=== PATIENT | male | born 1990 | race American Indian/Alaskan Native ===

== ENCOUNTER 2021-06-13 18:28 | Emergency (ER) | payer OTHER ==
[2021-06-13] MEDS ORDERED: HYDROmorphone 1 MG/ML Syringe IM ONE (20:25)
--- NOTE | 2021-06-13 20:31 | EDM.PDOC ---
ED HPI GENERAL MEDICAL PROBLEM - General Chief Complaint: Upper Extremity Injury/Pain Stated Complaint: WRIST INJURY Time Seen by Provider: 06/13/21 19:25 Source of Information: Reports: Patient, RN Notes Reviewed History Limitations: Reports: No Limitations - History of Present Illness INITIAL COMMENTS - FREE TEXT/NARRATIVE: Patient is a 11-year-old male presenting to the emergency department with complaints of pain to his left wrist. He was at a wrestling match in [place] and he tripped over a mat, causing the injury. Denies any previous injuries to this wrist. He has no numbness or tingling distal to the injury. Left Wrist Pain Score (Numeric/FACES): 2 - Related Data Allergies Allergy/AdvReac Type Severity Reaction Status Date / Time No Known Allergies Allergy Verified 06/13/21 21:16 Past Medical History - Past Health History Medical/Surgical History: Denies Medical/Surgical History Social & Family History - Tobacco Use Tobacco Use Status *Q: Current Every Day Tobacco User Years of Tobacco use: 12 Packs/Tins Daily: 0.5 - Caffeine Use Caffeine Use: Reports: Coffee, Energy Drinks, Soda - Recreational Drug Use Recreational Drug Use: Yes Recreational Drug Type: Reports: Marijuana/Hashish Review of Systems - Review of Systems Review Of Systems: Comprehensive ROS is negative, except as noted in HPI. ED EXAM, GENERAL - Physical Exam Exam: See Below Exam Limited By: No Limitations General Appearance: Alert, WD/WN, No Apparent Distress Respiratory/Chest: No Respiratory Distress, Lungs Clear, Normal Breath Sounds, No Accessory Muscle Use, Chest Non-Tender Cardiovascular: Normal Peripheral Pulses, Regular Rate, Rhythm, No Edema, No Gallop, No JVD, No Murmur, No Rub Extremities: Other (Mild swelling and obvious deformity to left wrist. CMS intact distal to injury.) Neurological: Alert, Oriented, Normal Cognition, Normal Gait, No Motor/Sensory Deficits Psychiatric: Normal Affect, Normal Mood Skin Exam: Warm, Dry, Intact, Normal Color, No Rash Course - Vital Signs Last Recorded V/S: Last Vital Signs Temp 97.6 F 06/13/21 18:59 Pulse 64 06/13/21 18:59 Resp 18 06/13/21 18:59 BP 138/88 06/13/21 18:59 Pulse Ox 100 06/13/21 18:59 - Orders/Labs/Meds Meds: Medications Discontinued Medications Generic Name Dose Route Start Last Admin Trade Name Venessa PRN Reason Stop Dose Admin Hydromorphone HCl 1 mg 06/13/21 20:25 06/13/21 20:34 Hydromorphone 1 Mg/Ml Syringe IM 06/13/21 20:26 1 mg ONETIME ONE Administration - Re-Assessments/Exams Free Text/Narrative Re-Assessment/Exam: X-ray of the left wrist shows comminuted fracture of the distal radius as well as the ulnar styloid fracture. Spoke with Dr. Palacios, orthopedist on-call at [facility] in [place]. Unfortunately he does not have access to the images to determine if this requires reduction. He recommend that we splint in place. If there is more than 10 to 15 degrees of angulation, he may check in at [facility] in [place] tomorrow morning between 9 and 10 AM n.p.o. to have it surgically repaired. If it is less than 10 to 15 degrees, he recommends that he follow-up in the clinic on Tuesday. I have ordered Dilaudid 1 mg IM to be given. We will plan to splint. X-ray will be sent to radiology to have the measure the degrees of angulation. 06/14/21 22:20 Volar splint was applied to the left upper extremity extending from the hand to just above the elbow. Patient was provided with sling. He tolerated procedure well. CMS intact after application of splint. See procedure notes. Radiologist commented on moderate angulation, but did not specify the degree of angulation. X-rays were reviewed by Dr. Kayli MD. He estimated it was 20 to 30 degrees of angulation. Patient will present to [facility] in [place] tomorrow morning for surgical repair with Dr. Palacios. Adivsed n.p.o. after midnight. Discharge instructions as documented. Departure - Departure Time of Disposition: 21:12 Disposition: Home, Self-Care 01 Condition: Good Clinical Impression: Closed fracture distal radius and ulna Qualifiers: Encounter type: initial encounter Laterality: left Qualified Code(s): S52.502A - Unspecified fracture of the lower end of left radius, initial encounter for closed fracture - Discharge Information *PRESCRIPTION DRUG MONITORING PROGRAM REVIEWED*: No *COPY OF PRESCRIPTION DRUG MONITORING REPORT IN PATIENT JAY: No Instructions: Wrist Fracture Treated With Immobilization, [id number] Referrals: Newton Palacios MD [Ordering Only Provider] - Forms: ED Department Discharge Additional Instructions: Wear sling at all times when up and moving. Ice and elevate the wrist at rest. Use Tylenol or ibuprofen as needed for discomfort. Check in at [facility] at 9 AM tomorrow morning for surgery. No food or drink after midnight.
--- NOTE | 2021-06-14 08:25 | CR ---
Left wrist: 3 views of the left wrist were obtained. Comparison: No prior left wrist study is available. Fracture is identified within the distal left radius which is mildly comminuted. There is extension into the articular margin. Posterior impaction is seen with posterior tilt of the distal radial articular margin. Minimal fracture is seen within the ulnar styloid process. No additional bony abnormality is seen. Diffuse soft tissue swelling is identified. Impression: 1. Distal left radial fracture with articular extension and posterior impaction. 2. Minimal ulnar styloid avulsion fracture with soft tissue swelling. Diagnostic code #3 I agree with preliminary report from [facility], finalized on 06/13/21, 9:57 PM [employer], code 1
== END 2021-06-13 21:22 | disposition home or self-care (01) ==
LOC: JD.ED 18:28
DX: S52.502A Unspecified fracture of the lower end of left radius, initial encounter for closed fracture (principal); S52.612A Displaced fracture of left ulna styloid process, initial encounter for closed fracture; Z72.0 Tobacco use; W22.8XXA Striking against or struck by other objects, initial encounter; Y93.72 Activity, wrestling
CPT/HCPCS: 29105; 73110; 96372; 99283; J1170; 99285